=== PATIENT | female | born 1935 | race Caucasian/White ===

== ENCOUNTER → 2018-03-17 | Outpatient (REF) | payer OTHER ==
[2018-03-17 22:02] LABS: APPEARANCE, URINE TURBID (CLEAR); BACTERIA, URINE AUTO 1+ (NEGATIVE); BILIRUBIN, URINE AUTO NEGATIVE (NEGATIVE); BLOOD, URINE BLOOD 3+ (NEGATIVE); COLOR, URINE AMBER (YELLOW); GLUCOSE, URINE (UA) AUTO NEGATIVE (NEGATIVE); KETONE, URINE AUTO NEGATIVE (NEGATIVE); LEUKOCYTE ESTERASE, URINE AUTO 2+ (NEGATIVE); MUCUS, URINE LARGE (NEGATIVE); NITRITE, URINE AUTO POSITIVE (NEGATIVE); PROTEIN, URINE AUTO 2+ mg/dL (NEGATIVE); RBC, URINE AUTO TNTC /HPF (0-3); SPECIFIC GRAVITY URINE AUTO 1.023 (1.002-1.035); SQUAMOUS EPITHELIAL CELL UR AU 0 /HPF (0-6); UROBILINOGEN, URINE AUTO 0.2 mg/dL (0.0-2.0); WBC, URINE AUTO TNTC /HPF (0-3)
== END ==
LOC: M LAB REF 10:15
DX: N39.0 Urinary tract infection, site not specified (principal)
CPT/HCPCS: 81001

== ENCOUNTER 2018-12-20 10:24 | Day surgery (SDC) | payer MEDICARE ==
[~2018-12-20] VITALS: Ht 161.9 cm; Wt 58.4 kg
[~2018-12-20 10:24] MED LIST: /ALEN7SOL OR; ACET-897 PO; ACET65TA OR; ASPI325T OR; BALANCED SALT IRRIGATION SOLUTION 500ML BAG (FOR OR EYE MACHINE) As Ordered ONE; CALC-204 PO; CALC500T21 PO; CALC600T7 PO; CALCCAP4 PO; CALCTAB22 OR; CEFUROXIME 1MG/0.1ML INTRACAMERAL INJ As Ordered ONE; DUOVISC (0.50ML VISCOAT/0.55ML PROVISC) OPHTH KIT As Ordered ONE; FISH300C2 OR; FOSA70TA PO; LIDOCAINE 0.75%/EPINEPHRINE 0.025% IN BSS 1ML SYR INTRACAMERAL (OR ONLY) As Ordered ONE; LOPR50TA OR; MAPA500T17 PO; METO1TAB87 PO; MIDAZOLAM INJ 2 MG/2 ML VIAL (J2250) As Ordered ONE; MULTIVIT PO; OFLOXACIN 0.3 % (OCUFLOX) OPTH SOL 5ML OS ONE; PHENYLEPHRINE 2.5% OPHTH SOL 2ML OS ONE; POVIDONE-IODINE 5% OPHTH PREP SOL 30ML As Ordered ONE; PROPARACAINE 0.5% OPHTH SOL 15ML OS ONE; SENO8.6T9 PO; TROPICAMIDE 1% OPHTH SOLN 2ML OS ONE; ULTR50TA PO; VITAMIN D50000 UNT OR; XARE20TA PO; XARELTO PO; cholecalciferol PO; fentaNYL 100 MCG/2 ML INJECTION (J3010) As Ordered ONE
[2018-12-20 12:33] VITALS: BP 139/69
--- NOTE | 2018-12-21 07:56 | RO ---
DATE OF PROCEDURE: 12/20/2018 PREOPERATIVE DIAGNOSIS: 1. Visually significant nuclear sclerotic cataract left eye. POSTOPERATIVE DIAGNOSIS: 1. Visually significant nuclear sclerotic cataract left eye. PROCEDURE: 1. Cataract extraction with use of phacoemulsification and placement of intraocular lens, AU00T0 21.0 D, left eye. SURGEON: Dez Mendez DO SOFTWARE PROJECT MANAGER: None. ANESTHESIA: Local with monitored anesthesia care (MAC). COMPLICATIONS: None. POSTOPERATIVE CONDITION: Stable. INDICATIONS FOR SURGERY: 1. Blurred vision affecting patients activities of daily living. DESCRIPTION OF PROCEDURE: The patient was seen in the preoperative area and properly identified. The correct operative eye was identified and marked. The patient received topical anesthetic, antibiotics, and topical dilating drops. The patient was then transferred to the operating room. The correct side was re-identified, and a time-out was performed. The eye was prepped and draped in a sterile fashion. The eyelids were isolated with Tegaderm tape, and the lids were held open with an adjustable speculum. A 1.0 mm paracentesis incision was made. Intraocular preservative-free Shugarcaine was then injected into the anterior chamber. Viscoelastic was then injected into the anterior chamber through the paracentesis. Using a 2.4 mm sharp-tipped keratome, the anterior chamber was entered via a temporal clear cornea incision. A continuous curvilinear capsulorrhexis was created with Utrata forceps. Hydrodissection was performed with balanced salt solution (BSS) on a blunt cannula until the nucleus was able to rotate freely. The crystalline lens was phacoemulsified and aspirated. Irrigation/aspiration was used to remove the cortical material. Cohesive viscoelastic was placed into the capsular bag to deepen it. The implant was placed into the capsular bag and allowed to unfold. Placement was confirmed by visualizing the anterior capsulorrhexis. Irrigation/aspiration was used to remove the viscoelastic. The clear corneal incision was hydrated with BSS on a blunt cannula. The lens was well positioned. The incisions were then tested for leaks and found to be negative. The eye was then palpated for appropriate pressure and adjusted accordingly with BSS. The eyelid speculum was then carefully removed. A shield was placed over the eye. The patient tolerated the procedure well and was discharged to the recovery unit in a stable condition.
== END 2018-12-20 12:39 | disposition home or self-care (01) ==
LOC: M SDC 10:24
PROVIDERS: ATTEND Ophthalmology
DX: H25.12 Age-related nuclear cataract, left eye (principal); I10 Essential (primary) hypertension; Z87.891 Personal history of nicotine dependence; Z79.899 Other long term (current) drug therapy
CPT/HCPCS: 66984; J2250; J3010; V2632

== ENCOUNTER 2019-01-03 10:56 | Day surgery (SDC) | payer MEDICARE ==
[~2019-01-03] VITALS: Ht 160 cm; Wt 59.0 kg
[~2019-01-03 10:56] MED LIST changes: -MIDAZOLAM INJ 2 MG/2 ML VIAL (J2250) As Ordered ONE; +OFLOXACIN 0.3 % (OCUFLOX) OPTH SOL 5ML OD ONE; -OFLOXACIN 0.3 % (OCUFLOX) OPTH SOL 5ML OS ONE; +PHENYLEPHRINE 2.5% OPHTH SOL 2ML OD ONE; -PHENYLEPHRINE 2.5% OPHTH SOL 2ML OS ONE; +PROPARACAINE 0.5% OPHTH SOL 15ML OD ONE; -PROPARACAINE 0.5% OPHTH SOL 15ML OS ONE; +TROPICAMIDE 1% OPHTH SOLN 2ML OD ONE; -TROPICAMIDE 1% OPHTH SOLN 2ML OS ONE; -fentaNYL 100 MCG/2 ML INJECTION (J3010) As Ordered ONE
[2019-01-03] MEDS ORDERED: fentaNYL 100 MCG/2 ML INJECTION (J3010) As Ordered ONE (11:55)
[2019-01-03] MEDS ORDERED: MIDAZOLAM INJ 2 MG/2 ML VIAL (J2250) As Ordered ONE (11:55)
[2019-01-03 13:00] VITALS: BP 119/66
[2019-01-03] MEDS ORDERED: ceFAZolin 1GM INJ (J0690 PER 500MG) As Ordered ONE (13:00)
--- NOTE | 2019-01-04 08:26 | RO ---
DATE OF PROCEDURE: 01/03/2019 PREOPERATIVE DIAGNOSIS: 1. Visually significant nuclear sclerotic cataract right eye. POSTOPERATIVE DIAGNOSIS: 1. Visually significant nuclear sclerotic cataract right eye. PROCEDURE: 1. Cataract extraction with use of phacoemulsification and placement of intraocular lens, AU00T0, 21.5 D, right eye. SURGEON: Dez Mendez DO SPECIAL EFFECTS SPECIALIST: None. ANESTHESIA: Local with monitored anesthesia care (MAC). COMPLICATIONS: None. POSTOPERATIVE CONDITION: Stable. INDICATIONS FOR SURGERY: 1. Blurred vision affecting patients activities of daily living. DESCRIPTION OF PROCEDURE: The patient was seen in the preoperative area and properly identified. The correct operative eye was identified and marked. The patient received topical anesthetic, antibiotics, and topical dilating drops. The patient was then transferred to the operating room. The correct side was re-identified, and a time-out was performed. The eye was prepped and draped in a sterile fashion. The eyelids were isolated with Tegaderm tape, and the lids were held open with an adjustable speculum. A 1.0 mm paracentesis incision was made. Intraocular preservative-free Shugarcaine was then injected into the anterior chamber. Viscoelastic was then injected into the anterior chamber through the paracentesis. Using a 2.4 mm sharp-tipped keratome, the anterior chamber was entered via a temporal clear cornea incision. A continuous curvilinear capsulorrhexis was created with Utrata forceps. Hydrodissection was performed with balanced salt solution (BSS) on a blunt cannula until the nucleus was able to rotate freely. The crystalline lens was phacoemulsified and aspirated. Irrigation/aspiration was used to remove the cortical material. Cohesive viscoelastic was placed into the capsular bag to deepen it. The implant was placed into the capsular bag and allowed to unfold. Placement was confirmed by visualizing the anterior capsulorrhexis. Irrigation/aspiration was used to remove the viscoelastic. The clear corneal incision was hydrated with BSS on a blunt cannula. The lens was well positioned. The incisions were then tested for leaks and found to be negative. The eye was then palpated for appropriate pressure and adjusted accordingly with BSS. The eyelid speculum was then carefully removed. A shield was placed over the eye. The patient tolerated the procedure well and was discharged to the recovery unit in a stable condition.
== END 2019-01-03 13:10 | disposition home or self-care (01) ==
LOC: M SDC 10:56
PROVIDERS: ATTEND Ophthalmology
DX: H25.11 Age-related nuclear cataract, right eye (principal); I10 Essential (primary) hypertension; I48.91 Unspecified atrial fibrillation; Z79.01 Long term (current) use of anticoagulants; Z79.899 Other long term (current) drug therapy; Z87.891 Personal history of nicotine dependence
CPT/HCPCS: 66984; J2250; J3010; V2632

== ENCOUNTER 2021-06-23 13:17 | Inpatient (IN) | payer MEDICARE ==
[~2021-06-23] VITALS: Ht 160 cm; Wt 56.6 kg
[~2021-06-23 13:17] MED LIST changes: -BALANCED SALT IRRIGATION SOLUTION 500ML BAG (FOR OR EYE MACHINE) As Ordered ONE; -CEFUROXIME 1MG/0.1ML INTRACAMERAL INJ As Ordered ONE; -DUOVISC (0.50ML VISCOAT/0.55ML PROVISC) OPHTH KIT As Ordered ONE; -LIDOCAINE 0.75%/EPINEPHRINE 0.025% IN BSS 1ML SYR INTRACAMERAL (OR ONLY) As Ordered ONE; -OFLOXACIN 0.3 % (OCUFLOX) OPTH SOL 5ML OD ONE; -PHENYLEPHRINE 2.5% OPHTH SOL 2ML OD ONE; -POVIDONE-IODINE 5% OPHTH PREP SOL 30ML As Ordered ONE; -PROPARACAINE 0.5% OPHTH SOL 15ML OD ONE; -TROPICAMIDE 1% OPHTH SOLN 2ML OD ONE
[2021-06-23] MEDS ORDERED: MORPHINE 2 MG/ML 1ML VIAL (J2270) IV ONE (13:50)
[2021-06-23] MEDS ORDERED: ONDANSETRON 4MG/2ML VIAL IV ONE (13:50)
[2021-06-23 14:26] LABS: BASO # 0.1 10^3/uL (0.0-0.2); BASO % 0.4 % (0.0-1.0); EOS # 0.1 10^3/uL (0.0-0.5); EOS % 0.6 % (0.0-3.0); HEMATOCRIT 44.4 % (36.0-47.0); HEMOGLOBIN 14.5 g/dl (12.0-15.5); LYMPH % 8.5 % (24.0-44.0); MEAN CORPUSCULAR HEMOGLOBIN 31.3 pg (27.0-33.0); MEAN CORPUSCULAR HGB CONC 32.7 g/dl (32.0-36.5); MEAN CORPUSCULAR VOLUME 95.9 fl (80.0-96.0); MONO # 0.5 10^3/uL (0.0-0.8); MONO % 4.1 % (2.0-8.0); NEUTROPHILS % 84.7 % (36.0-66.0); PLATELET COUNT, AUTOMATED 203 10^3/uL (150-450); RED BLOOD COUNT 4.63 10^6/uL (4.00-5.40); WHITE BLOOD COUNT 11.8 10^3/uL (4.0-10.0)
--- NOTE | 2021-06-23 14:45 | REP ---
INDICATION: right hip/pelvic pain s/p fall. COMPARISON: 08/07/2013 the latest prior TECHNIQUE: AP pelvis two views right hip FINDINGS: The right hip prosthesis is unchanged in alignment and position. No abnormal para prosthetic lucencies are identified. There is evidence of a cortical overlap involving the acetabulum of the right hip and increased bony density involving the right inferior pubic ramus. This represents a change compared to the prior exam. This also represents a change compared to the contralateral side.. IMPRESSION: Findings, as described above, suspicious for a right james pelvic fracture. CT recommended for further evaluation. <Electronically signed by Brad Machuca > 06/23/21 [id number]
[2021-06-23 14:46] LABS: CALCIUM LEVEL 9.2 MG/DL (8.8-10.2); CREATININE FOR GFR 1.1 MG/DL (0.55-1.30); GLOMERULAR FILTRATION RATE 50.3 (>32); POTASSIUM SERUM 4.3 MEQ/L (3.5-5.1)
--- NOTE | 2021-06-23 15:43 | REP ---
INDICATION: further evaluate right pelvic fracture. COMPARISON: None. TECHNIQUE: Axial images through the pelvis and right hip with coronal and sagittal reformations of the pelvis and hip. FINDINGS: Evaluation is limited due to significant metallic streak artifact from right hip replacement. There is evidence for an acute comminuted minimally displaced fracture of the right inferior pubic ramus (series 201; image 77). There appears to be an associated intramuscular hematoma along the superficial aspect of the fracture which is incompletely evaluated due to significant metallic streak artifact. Coronal images of the right hip best demonstrate an associated subtle nondisplaced fracture along the internal cortex of the acetabulum (series 212; image 23). There is a subtle nondisplaced fracture along the anterior margin of the right james sacrum (series 201; images 34-39). IMPRESSION: Multiple fractures as described above. <Electronically signed by Graham Younger > 06/23/21 [id number]
--- NOTE | 2021-06-23 17:37 | CR.PDOC ---
General Date of Consultation: Jun 23, 2021 Consultation REASON FOR CONSULTATION/CHIEF COMPLAINT: Mechanical fall with x-ray and CT imaging demonstrating multiple undisplaced pelvic fractures in the setting of a right total hip arthroplasty. HISTORY OF PRESENT ILLNESS: Patient states that she had been outside today and slipped on some wet blacktop and fell onto her right side. She was unable to weight-bear. She was helped into a chair until the ambulance arrived. The patient reports that she had a history of a right total hip arthroplasty performed by Dr. Angel of [facility] in 2013. She is not had any issues or complaints or concerns associated with this. Currently she states that if she lies still she does not have any significant pain or discomfort. When she tries to move about she starts to get some pelvic pain. ALLERGIES: Please see below. HOME MEDICATIONS: Please see below. 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 REVIEW OF SYSTEMS: Patient denies any other injuries aside from the right hip and pelvic pains that she is experiencing. Denies any tingling numbness or paresthesias to lower extremities. PHYSICAL EXAMINATION: VITAL SIGNS: Please see below. GENERAL APPEARANCE: Patient is alert and oriented and in no acute distress lying in bed. EXTREMITIES: Gentle logroll of the right leg does not demonstrate any significant pain or discomfort. I did not do any significant hip flexion or otherwise manipulation of the right hip joint as result of the patient's injury. Neurologic: 5/5 strength, bilaterally to the tibialis anterior, EHL and gastrocsoleus. Sensation is intact to light touch in the L4-S1 dermatome distribution, bilaterally. Vascular: Palpable posterior tibial pulse bilaterally to lower extremities. LABORATORY DATA: Please see below. Imaging: X-ray imaging was independently reviewed by myself. This demonstrated evidence of an inferior pubic rami fracture and medial acetabular wall minimally to undisplaced fracture. CT scan of Pelvis: Imaging was independently reviewed by myself. The report demonstrated findings consistent with an anterior margin sacral fracture on the right side minimally to undisplaced. Inferior pubic ramus fracture minimally to undisplaced with some comminution and the anterior margin of the acetabulum on the right demonstrated undisplaced fracture. There is no significant evidence of any loosening of the right hip prosthesis ASSESSMENT/PLAN: 1. Imaging was reviewed and discussed with the patient. The patient would like to avoid any surgical intervention if possible. Based on the fact that the prosthesis does not appear to be loose and the fractures are minimally to nondisplaced. I have suggested conservative treatment. If an acetabular reconstruction and revision of the hip replacement was required, this would have to be referred to a tertiary care center due to the level of complexity. She is in understanding of this. We will proceed with conservative treatment. I have recommended touchdown weightbearing for balance only to the right lower extremity to mobilize with a walker. Limit hip flexion to less than 45 degrees with limited range of motion to the hip joint for the 2 to 3-weeks Hold the patient's Eliquis and reevaluate her hemoglobin and hematocrit tomorrow morning. If there is a drop in her hemoglobin there may be consideration for holding the blood thinner for 48 to 72 hours. Any significant drop in the hemoglobin should be evaluated with a CT angio of the pelvis to see if there are any vessels that may need to be embolized. Given the minimally displaced nature of the fracture this is less likely Patient may require rehabilitation depending on her activity level. 2. The patient will follow up in the clinic for reevaluation with repeat x-ray imaging in 6 weeks. I have discussed the conservative treatment plan with the patient and she is in agreement with this option. Vital Signs/I&O Vital Signs Date Time Temp Pulse Resp B/P (MAP) Pulse Ox O2 Delivery O2 Flow Rate FiO2 06/23/21 16:47 74 98 06/23/21 16:45 17 150/84 (106) Room Air 06/23/21 13:34 97.2 Laboratory Data Labs 24H Laboratory Tests 2 06/23/21 14:10: Immature Granulocyte % (Auto) 1.7, Neutrophils (%) (Auto) 84.7H, Lymphocytes (%) (Auto) 8.5L, Monocytes (%) (Auto) 4.1, Eosinophils (%) (Auto) 0.6, Basophils (%) (Auto) 0.4, Neutrophils # (Auto) 10.0H, Lymphocytes # (Auto) 1.0L, Monocytes # (Auto) 0.5, Eosinophils # (Auto) 0.1, Basophils # (Auto) 0.1, Nucleated Red Blood Cells % (auto) 0.0, Anion Gap 6L, Glomerular Filtration Rate 50.3, Calcium Level 9.2 CBC/BMP Laboratory Tests 06/23/21 14:10 Allergies Coded Allergies: No Known Allergies (Unverified , 12/19/18) Home Medications Scheduled Alendronate Sodium (Alendronate Sodium) 70 Mg Tablet, 70 MG PO QWEEK, (Reported) SUNDAYS Calcium Carbonate/Vitamin D3 (Calcium 600 + Vit D 400 Softgl) 1 Each Capsule, 1 CAP PO DAILY, (Reported) Metoprolol Tartrate (Metoprolol Tartrate) 25 Mg Tablet, 25 MG PO BID, (Reported) Rivaroxaban (Xarelto) 20 Mg Tablet, 20 MG PO DAILY, (Reported) Scheduled PRN Acetaminophen (Tylenol Extra Strength) 500 Mg Tablet, 500 MG PO Q6HP PRN for PAIN, (Reported) ANGIE TRACEY MD Jun 23, 2021 17:37
[2021-06-23] MEDS ORDERED: MORPHINE 2 MG/ML 1ML VIAL (J2270) IV PRN (17:50)
[2021-06-23] MEDS ORDERED: ALEN70TA82 PO (18:07)
[2021-06-23] MEDS ORDERED: HOME MED LIST COMPLETE! XX SCH (18:10)
--- NOTE | 2021-06-23 18:19 | HPEPDOC ---
[facility] Medical History & Physical Date of Admission Jun 23, 2021 Date of Service: Jun 23, 2021 History and Physical CHIEF COMPLAINT: slipped on icy blacktop, landing on my right hip HISTORY OF PRESENT ILLNESS: 86 y/o Full code F w h/o right hip replacement 2013, chronic Afib on Xarelto was in her usual state of health until 1245pm when she slipped on the icy blacktop and landed on her right hip unable to get up and ambulate w 10/10 pain. She denied any sob, cp, pressure tightness, dizziness, lightheadedness, near syncope, diaphoresis, n/v/, palpitations prior to the fall. She denies any head trauma or loss of consciousness. She denies any recent fevers, chills,changes in appetite, n/v/abd pain, diarrhea, brbpr, hematemesis, coffee ground emesis, hypoglycemia, dysuria, urgency, frequency, banuelos, changes in vision, sore throat, ue and le paresthesias or weakness b/l prior to the fall. In the ER,ct pelvis: "There is evidence for an acute comminuted minimally displaced fracture of the right inferior pubic ramus . There appears to be an associated intramuscular hematoma along the superficial aspect of the fracture which is incompletely evaluated due to significant metallic streak artifact. Coronal images of the right hip best demonstrate an associated subtle nondisplaced fracture along the internal cortex of the acetabulum . There is a subtle nondisplaced fracture along the anterior margin of the right james sacrum." orthopedic surgery recommended hospitalist admission with supportive care. Xarelto held due to hematoma. 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 ALLERGIES: Please see below. REVIEW OF SYSTEMS:10 pt ros neg aside from (+) findings on HPI HOME MEDICATIONS: Please see below. PHYSICAL EXAMINATION: VITAL SIGNS:see below GEN: no distress cyanosis pallor HEENT: face is symmetric tongue midline no jvd or thyromegaly CARDIOVASCULAR: S1S2 irregularly irregular no s3 nondisplaced pmi no m/r/g LUNGS: CTAB AEBE no w/r/r ABDOMEN:+bs soft nt nd EXTREMITIES:no pitting edema right leg limited rom w flexion extension at hip due to pain dp pt pulses 2+ bl le. no cyanosis. SKIN: warm dry pink in color LABORATORY DATA: See below. IMAGING: see below MICROBIOLOGY: Please see below. ASSESSMENT: .86 y/o Full code F w h/o right hip replacement 2013, chronic Afib on Xarelto was in her usual state of health until 1245pm when she slipped on the [place] blacktop and landed on her right hip unable to get up and ambulate w 10/10 pain. She denied any sob, cp, pressure tightness, dizziness, lightheadedness, near syncope, diaphoresis, n/v/, palpitations prior to the fall. She denies any head trauma or loss of consciousness. She denies any recent fevers, chills,changes in appetite, n/v/abd pain, diarrhea, brbpr, hematemesis, coffee ground emesis, hypoglycemia, dysuria, urgency, frequency, banuelos, changes in vision, sore throat, ue and le paresthesias or weakness b/l prior to the fall. In the ER,ct pelvis: "There is evidence for an acute comminuted minimally displaced fracture of the right inferior pubic ramus . There appears to be an associated intramuscular hematoma along the superficial aspect of the fracture which is incompletely evaluated due to significant metallic streak artifact. Coronal images of the right hip best demonstrate an associated subtle nondisplaced fracture along the internal cortex of the acetabulum . There is a subtle nondisplaced fracture along the anterior margin of the right james sacrum." orthopedic surgery recommended hospitalist admission with supportive care. Xarelto held due to hematoma. mechanical fall in the setting of chronic xarelto for Afib multiple pelvic fracture/acetabular fx chronic afib htn osteoporosis vitamin D deficiency h/o uti PLAN: per ortho, conservative mgt w pain control and rehab, bowel regimen. held xarelto today due to hematoma. fall precautions, assisted ambulation only. activity per ortho. ARU consulted resumed metoprolol for hr control and bp. 2 gram sodium diet start on heparin sq in am for dvt prophylaxis once hematoma stabilizes. compression stockings for now. pt refused ct head and ct cervical spine. Vital Signs Vital Signs Date Time Temp Pulse Resp B/P (MAP) Pulse Ox O2 Delivery O2 Flow Rate FiO2 06/23/21 16:47 74 98 06/23/21 16:45 17 150/84 (106) Room Air 06/23/21 13:34 97.2 Laboratory Data Labs 24H Laboratory Tests 2 06/23/21 14:10: Immature Granulocyte % (Auto) 1.7, Neutrophils (%) (Auto) 84.7H, Lymphocytes (%) (Auto) 8.5L, Monocytes (%) (Auto) 4.1, Eosinophils (%) (Auto) 0.6, Basophils (%) (Auto) 0.4, Neutrophils # (Auto) 10.0H, Lymphocytes # (Auto) 1.0L, Monocytes # (Auto) 0.5, Eosinophils # (Auto) 0.1, Basophils # (Auto) 0.1, Nucleated Red Blood Cells % (auto) 0.0, Anion Gap 6L, Glomerular Filtration Rate 50.3, Calcium Level 9.2 CBC/BMP Laboratory Tests 06/23/21 14:10 Home Medications Scheduled Alendronate Sodium (Alendronate Sodium) 70 Mg Tablet, 70 MG PO QWEEK SUNDAYS Calcium Carbonate/Vitamin D3 (Calcium 600 + Vit D 400 Softgl) 1 Each Capsule, 1 CAP PO DAILY Metoprolol Tartrate (Metoprolol Tartrate) 25 Mg Tablet, 25 MG PO BID Rivaroxaban (Xarelto) 20 Mg Tablet, 20 MG PO DAILY Scheduled PRN Acetaminophen (Tylenol Extra Strength) 500 Mg Tablet, 500 MG PO Q6HP PRN for PAIN Allergies Coded Allergies: No Known Allergies (Unverified , 12/19/18) A-FIB/CHADSVASC A-FIB History Current/History of A-Fib/PAF?: Yes Current PO Anticoag Therapy: Yes Age/Risk Factor Scoring CHADSVASC: CHADSVASC Response (Comments) Value Age Risk Factor Age >/= 75 years old 2 Gender Risk Factor Female 1 Hx of CHF No 0 Hx of HTN Yes 1 Hx of Stroke/TIA/or VTE No 0 Hx of Diabetes No 0 Hx of Vascular Disease No 0 Total 4 Treatment Treatment ordered: NONE Reason Anticoagulant not given: Current bleeding MILENA GOMEZ MD Jun 23, 2021 18:18
[2021-06-23 19:04] LABS: RSV AMPLIFICATION NEGATIVE (NEGATIVE)
[2021-06-23 20:00] VITALS: BP 143/82
[2021-06-23] MEDS ORDERED: METOPROLOL TART 25 MG TABLET PO SCH (21:00)
--- NOTE | 2021-06-23 21:39 | ECGEPIP ---
[facility] - ED Test Date: 2021-06-23 Pat Name: SANFORD SERVIN Department: Room: - Gender: Female [employer] Analyst: heather : 1935 Requested By: ANGIE WALLACE Order Number: [id number] Reading MD: Prasanna Henry Measurements Intervals [place] Rate: 75 P: 39 [place]: 170 QRS: -38 QRSD: 78 T: 38 QT: 384 QTc: 428 Interpretive Statements Normal sinus rhythm Left axis deviation POOR R WAVE PROGRESSION INCOMPLETE RIGHT BUNDLE BRANCH BLOCK NO PRIORS FOR COMPARISON Electronically Signed on 06-23-2021 21:38:59 EST by Prasanna Henry
[2021-06-23] MEDS: ACETAMINOPHEN 500 MG TAB PO SCH (21:40)
[2021-06-24] MEDS: traMADol 50 MG TAB PO PRN ×2 (00:45→08:57)
[2021-06-24 05:30] VITALS: BP 116/69
[2021-06-24 06:53] LABS: HEMATOCRIT 36.1 % (36.0-47.0); MEAN CORPUSCULAR HEMOGLOBIN 31.8 pg (27.0-33.0); MEAN CORPUSCULAR HGB CONC 33.8 g/dl (32.0-36.5); PLATELET COUNT, AUTOMATED 177 10^3/uL (150-450); RED BLOOD COUNT 3.84 10^6/uL (4.00-5.40); WHITE BLOOD COUNT 9.3 10^3/uL (4.0-10.0)
[2021-06-24 07:00] LABS: HEMOGLOBIN 12.2 g/dl (12.0-15.5)
[2021-06-24 07:21] LABS: BLOOD UREA NITROGEN 17 MG/DL (7-18); CALCIUM LEVEL 8.8 MG/DL (8.8-10.2); CARBON DIOXIDE LEVEL 29 MEQ/L (21-32); CHLORIDE LEVEL 102 MEQ/L (98-107); CREATININE FOR GFR 0.78 MG/DL (0.55-1.30); GLOMERULAR FILTRATION RATE > 60.0 (>32); GLUCOSE, FASTING 112 MG/DL (70-100); POTASSIUM SERUM 3.9 MEQ/L (3.5-5.1); SODIUM LEVEL 136 MEQ/L (136-145)
[2021-06-24] MEDS: ACETAMINOPHEN 500 MG TAB PO SCH ×3 (08:53→20:07)
[2021-06-24] MEDS: METOPROLOL SUCC *XL* 25MG TAB (TopROL *XL*) PO SCH (08:55)
[2021-06-24] MEDS: LIDOCAINE 5% (LIDODERM) PATCH TD SCH (08:56)
[2021-06-24] MEDS ORDERED: MIRALAX *UNIT DOSE* 17GM PACKET PO PRN (10:05)
[2021-06-24] MEDS ORDERED: MORPHINE 30 MG TAB **MSIR PO PRN (10:05)
[2021-06-24] MEDS ORDERED: NALOXONE INJ 0.4MG/1ML VIAL (J2310 PER 1MG) IV PRN (10:05)
--- NOTE | 2021-06-24 12:15 | IPNPDOC ---
Date Seen The patient was seen on 06/24/21. Progress Note Subjective: Patient has no pain when she is laying still on her back says the pain goes to 8 out of 10 when she tries to move around in bed she has not been out of bed or tried to get up this morning No other complaints overnight no other issues per nursing Objective: PHYSICAL EXAMINATION: VITAL SIGNS:see below GEN: Pleasant cooperative speaks in full sentences without cyanosis pallor flat on the bed in no distress HEENT: face is symmetric tongue midline no jvd or thyromegaly no cervical lymphadenopathy CARDIOVASCULAR: S1S2 irregularly irregular no s3 nondisplaced pmi no m/r/g LUNGS: CTAB AEBE no w/r/r no adventitious breath sounds ABDOMEN:+bs soft nt nd no rebound or guarding no hepatosplenomegaly EXTREMITIES:no pitting edema right leg limited rom w flexion extension at hip du e to pain dp pt pulses 2+ bl le. no cyanosis. SKIN: warm dry pink in color LABORATORY DATA: See below. IMAGING: see below MICROBIOLOGY: Please see below. HOSPITAL MEDICATIONS: METOPROLOL SENOKOT MIRALAX NARCAN MSIR TOPROL LIDODERM PATCH TYLENOL IV MORPHINE NEEDED ASSESSMENT: .86 y/o Full code F w h/o right hip replacement 2013, chronic Afib on Xarelto was in her usual state of health until 1245pm when she slipped on the icy blacktop and landed on her right hip unable to get up and ambulate w 10/10 pain. She denied any sob, cp, pressure tightness, dizziness, lightheadedness, near syncope, diaphoresis, n/v/, palpitations prior to the fall. She denies any head trauma or loss of consciousness. She denies any recent fevers, chills,changes in appetite, n/v/abd pain, diarrhea, brbpr, hematemesis, coffee ground emesis, hypoglycemia, dysuria, urgency, frequency, banuelos, changes in vision, sore throat, ue and le paresthesias or weakness b/l prior to the fall. In the ER,ct pelvis: "There is evidence for an acute comminuted minimally displaced fracture of the right inferior pubic ramus . There appears to be an associated intramuscular hematoma along the superficial aspect of the fracture which is incompletely evaluated due to significant metallic streak artifact. Coronal images of the right hip best demonstrate an associated subtle nondisplaced fracture along the internal cortex of the acetabulum . There is a subtle nondisplaced fracture along the anterior margin of the right james sacrum." orthopedic surgery recommended hospitalist admission with supportive care. Xarelto held due to hematoma. mechanical fall in the setting of chronic xarelto for Afib Conservative management per-per orthopedic surgeon Dr. Sawyer Fall precautions assisted ambulation only ARU consulted Xarelto held due to hematoma found on CT May resume in the morning if stable MSIR as needed for pain IV morphine for breakthrough. Tylenol 3 times daily multiple pelvic fracture/acetabular fx Conservative management with pain control physical therapy occupational therapy bowel regimen chronic afib May resume Xarelto in the morning. Held due to recent hematoma. Rate controlled on metoprolol htn Controlled on metoprolol osteoporosis/vitamin D deficiency/history of fall in the past May resume supplements in the morning h/o uti Check UA urine C&S Disposition: 2 to 3 days pending clinical improvement. Possible ARU versus home with services VS, I&O, 24H[facility] Vital Signs/I&O Vital Signs Date Time Temp Pulse Resp B/P (MAP) Pulse Ox O2 Delivery O2 Flow Rate FiO2 06/24/21 09:57 16 Room Air 06/24/21 08:55 79 134/83 06/24/21 05:30 98.0 98 Laboratory Data 24H LABS Laboratory Tests 2 06/23/21 14:10: Immature Granulocyte % (Auto) 1.7, Neutrophils (%) (Auto) 84.7H, Lymphocytes (%) (Auto) 8.5L, Monocytes (%) (Auto) 4.1, Eosinophils (%) (Auto) 0.6, Basophils (%) (Auto) 0.4, Neutrophils # (Auto) 10.0H, Lymphocytes # (Auto) 1.0L, Monocytes # (Auto) 0.5, Eosinophils # (Auto) 0.1, Basophils # (Auto) 0.1, Nucleated Red Blood Cells % (auto) 0.0, Anion Gap 6L, Glomerular Filtration Rate 50.3, Calcium Level 9.2 06/23/21 17:24: Coronavirus (COVID-19)(PCR) NEGATIVE, Influenza Type A (RT-PCR) NEGATIVE, Influenza Type B (RT-PCR) NEGATIVE, Respiratory Syncytial Virus (PCR) NEGATIVE 06/24/21 06:43: Anion Gap 5L, Glomerular Filtration Rate > 60.0, Calcium Level 8.8 06/24/21 06:44: Nucleated Red Blood Cells % (auto) 0.0 CBC/BMP Laboratory Tests 06/23/21 14:10 06/24/21 06:43 06/24/21 06:44 MILENA GOMEZ MD Jun 24, 2021 12:14
[2021-06-24 14:00] VITALS: BP 119/67
[2021-06-24] MEDS: **NOTE PATIENT COMMENT** MISC XX SCH (20:55)
[2021-06-25 06:27] LABS: HEMATOCRIT 35.7 % (36.0-47.0); MEAN CORPUSCULAR HEMOGLOBIN 31.7 pg (27.0-33.0); MEAN CORPUSCULAR HGB CONC 33.6 g/dl (32.0-36.5); MEAN CORPUSCULAR VOLUME 94.2 fl (80.0-96.0); PLATELET COUNT, AUTOMATED 166 10^3/uL (150-450); RED BLOOD COUNT 3.79 10^6/uL (4.00-5.40)
[2021-06-25 06:30] VITALS: BP 120/70
[2021-06-25 06:43] LABS: BLOOD UREA NITROGEN 18 MG/DL (7-18); CALCIUM LEVEL 8.3 MG/DL (8.8-10.2); CARBON DIOXIDE LEVEL 28 MEQ/L (21-32); CHLORIDE LEVEL 106 MEQ/L (98-107); CREATININE FOR GFR 0.87 MG/DL (0.55-1.30); GLOMERULAR FILTRATION RATE > 60.0 (>32); GLUCOSE, FASTING 96 MG/DL (70-100); SODIUM LEVEL 139 MEQ/L (136-145)
[2021-06-25] MEDS: LIDOCAINE 5% (LIDODERM) PATCH TD SCH (08:35)
[2021-06-25] MEDS: ACETAMINOPHEN 500 MG TAB PO SCH ×3 (08:36→21:22)
[2021-06-25] MEDS: METOPROLOL SUCC *XL* 25MG TAB (TopROL *XL*) PO SCH (08:36)
[2021-06-25 14:29] VITALS: BP 113/66
[2021-06-25] MEDS ORDERED: CALCIUM CARBONATE 500 MG CHEW U/D PO PRN (16:55)
--- NOTE | 2021-06-25 16:56 | IPNPDOC ---
Text Note Date of Service The patient was seen on 06/25/21. NOTE Subjective: 86-year-old female presented emergency room department after a fall. CT scan of the pelvis noted acute minimally displaced fracture of the right inferior pubic ramus; nondisplaced fracture along the internal cortex of the acetabulum; and a nondisplaced fracture along the anterior margin of the right hemisacrum. She was seen and examined this morning. Reports having sacral pain. She denied tingling and numbness of the lower extremities. She denied headaches, chest pain, abdominal pain, nausea, vomiting, problem with urination or bowel movements. She was explained the plan for possible rehab placement, which she was in agreement with. Review of systems: 10 point review of system was negative except for what is noted in the HPI Physical exam: General: Lying in bed, no acute distress Head/Neck/Throat: Trachea midline, mucous membranes moist Eyes: Sclera anicteric, erythema or discharge appreciated bilaterally Thorax: Normal respiratory effort on room air, lungs clear to auscultation bilaterally, no wheezes/rales/rhonchi Cardiovascular: Normal rate, regular rhythm, normal S1, S2; palpable dorsalis pedis bilaterally Abdomen: Bowel sounds present, soft/nontender/nondistended Genitourinary: No CVA tenderness, no Cooper in place Skin: Warm, dry Neurologic: AAOx3. 5/5 strength in the upper and lower extremities. Sensation to gross touch intact. Limited range of motion in the right lower extremity due to reported pain over the sacrum region. Labs: See below Imaging: Please see imaging section Assessment/plan: #Mechanical fall - CT scan of the pelvis noted acute minimally displaced fracture of the right inferior pubic ramus; nondisplaced fracture along the internal cortex of the acetabulum; and a nondisplaced fracture along the anterior margin of the right hemisacrum. She does not want any surgical interventions at this time. Appreciate orthopedic recommendations in regards to weightbearing status. -Continue with PT/OT. Fall precautions. #Multiple pelvic fractures -Plan above. #Osteoporosis/vitamin D deficiency -Continue with ambulatory supplementation #Hematoma -This was patient on CT scan. Hemoglobin remained stable. Her Xarelto can be resumed. #Chronic atrial fibrillation -Rate is controlled with metoprolol. Continue with Xarelto, dose has been adjusted based on renal function. #Hypertension -Controlled with metoprolol #DVT prophylaxis -offered w/ rivaroxaban Disposition: Pt medically stable to be placed in rehab. She was not accepted to ARU. Will be made ALC status. VS,Fishbone, I+O VS, Fishbone, I+O Laboratory Tests 06/25/21 05:52 Vital Signs Date Time Temp Pulse Resp B/P (MAP) Pulse Ox O2 Delivery O2 Flow Rate FiO2 06/25/21 09:06 16 06/25/21 08:36 111 120/70 06/25/21 06:30 97.7 96 06/24/21 09:57 Room Air I&O- Last 24 Hours up to 6 AM 06/25/21 06:00 Intake Total 1540 ml Balance 1540 ml KIANA MAHAN M.D. Jun 25, 2021 16:56
[2021-06-25] MEDS ORDERED: RIVAROXABAN 15 MG TAB (XARELTO) PO SCH (18:00)
[2021-06-25] MEDS: **NOTE PATIENT COMMENT** MISC XX SCH (21:22)
[2021-06-26 06:00] VITALS: BP 145/86
[2021-06-26 07:25] LABS: HEMATOCRIT 35.4 % (36.0-47.0); HEMOGLOBIN 11.7 g/dl (12.0-15.5); MEAN CORPUSCULAR HEMOGLOBIN 31.5 pg (27.0-33.0); MEAN CORPUSCULAR HGB CONC 33.1 g/dl (32.0-36.5); MEAN CORPUSCULAR VOLUME 95.2 fl (80.0-96.0); PLATELET COUNT, AUTOMATED 154 10^3/uL (150-450); RED BLOOD COUNT 3.72 10^6/uL (4.00-5.40); WHITE BLOOD COUNT 6.5 10^3/uL (4.0-10.0)
[2021-06-26 07:53] LABS: BLOOD UREA NITROGEN 21 MG/DL (7-18); CALCIUM LEVEL 8.1 MG/DL (8.8-10.2); CARBON DIOXIDE LEVEL 29 MEQ/L (21-32); CHLORIDE LEVEL 106 MEQ/L (98-107); CREATININE FOR GFR 0.81 MG/DL (0.55-1.30); GLOMERULAR FILTRATION RATE > 60.0 (>32); GLUCOSE, FASTING 95 MG/DL (70-100); POTASSIUM SERUM 4.3 MEQ/L (3.5-5.1); SODIUM LEVEL 140 MEQ/L (136-145)
[2021-06-26] MEDS: VITAMIN D (CHOLECALCIFEROL) 400 INTERNATIONAL UNITS TAB PO SCH (08:23)
[2021-06-26] MEDS: ACETAMINOPHEN 500 MG TAB PO SCH ×3 (08:24→20:28)
[2021-06-26] MEDS: METOPROLOL SUCC *XL* 25MG TAB (TopROL *XL*) PO SCH (08:25)
[2021-06-26] MEDS: LIDOCAINE 5% (LIDODERM) PATCH TD SCH (08:25)
[2021-06-26] MEDS: SENOKOT S TAB PO PRN (10:10)
[2021-06-26] MEDS: RIVAROXABAN 15 MG TAB (XARELTO) PO SCH (17:06)
[2021-06-26] MEDS: **NOTE PATIENT COMMENT** MISC XX SCH (20:29)
[2021-06-27] MEDS: traMADol 50 MG TAB PO PRN (02:41)
[2021-06-27 06:00] VITALS: BP 132/62
[2021-06-27] MEDS ORDERED: ALENDRONATE 35MG TABLET PO SCH (07:00)
[2021-06-27 08:14] LABS: HEMATOCRIT 33.4 % (36.0-47.0); HEMOGLOBIN 11.2 g/dl (12.0-15.5); MEAN CORPUSCULAR HEMOGLOBIN 31.7 pg (27.0-33.0); MEAN CORPUSCULAR HGB CONC 33.5 g/dl (32.0-36.5); MEAN CORPUSCULAR VOLUME 94.6 fl (80.0-96.0); PLATELET COUNT, AUTOMATED 180 10^3/uL (150-450); RED BLOOD COUNT 3.53 10^6/uL (4.00-5.40); WHITE BLOOD COUNT 6.2 10^3/uL (4.0-10.0)
[2021-06-27] MEDS: VITAMIN D (CHOLECALCIFEROL) 400 INTERNATIONAL UNITS TAB PO SCH (08:29)
[2021-06-27] MEDS: LIDOCAINE 5% (LIDODERM) PATCH TD SCH (08:29)
[2021-06-27] MEDS: ACETAMINOPHEN 500 MG TAB PO SCH ×3 (08:31→20:46)
[2021-06-27] MEDS: METOPROLOL SUCC *XL* 25MG TAB (TopROL *XL*) PO SCH (08:32)
[2021-06-27 08:37] LABS: BLOOD UREA NITROGEN 17 MG/DL (7-18); CALCIUM LEVEL 8.3 MG/DL (8.8-10.2); CARBON DIOXIDE LEVEL 29 MEQ/L (21-32); CHLORIDE LEVEL 105 MEQ/L (98-107); CREATININE FOR GFR 0.77 MG/DL (0.55-1.30); GLOMERULAR FILTRATION RATE > 60.0 (>32); GLUCOSE, FASTING 92 MG/DL (70-100); POTASSIUM SERUM 3.9 MEQ/L (3.5-5.1); SODIUM LEVEL 139 MEQ/L (136-145)
[2021-06-27] MEDS: RIVAROXABAN 15 MG TAB (XARELTO) PO SCH (17:58)
[2021-06-27] MEDS: **NOTE PATIENT COMMENT** MISC XX SCH (20:46)
[2021-06-28] MEDS: SENOKOT S TAB PO PRN (03:48)
[2021-06-28 06:00] VITALS: BP 137/83
[2021-06-28 06:56] LABS: HEMATOCRIT 33.6 % (36.0-47.0); HEMOGLOBIN 11.3 g/dl (12.0-15.5); MEAN CORPUSCULAR HGB CONC 33.6 g/dl (32.0-36.5); MEAN CORPUSCULAR VOLUME 95.2 fl (80.0-96.0); PLATELET COUNT, AUTOMATED 189 10^3/uL (150-450); RED BLOOD COUNT 3.53 10^6/uL (4.00-5.40); WHITE BLOOD COUNT 5.6 10^3/uL (4.0-10.0)
[2021-06-28 07:19] LABS: BLOOD UREA NITROGEN 19 MG/DL (7-18); CALCIUM LEVEL 8.1 MG/DL (8.8-10.2); CARBON DIOXIDE LEVEL 27 MEQ/L (21-32); CHLORIDE LEVEL 106 MEQ/L (98-107); CREATININE FOR GFR 0.77 MG/DL (0.55-1.30); GLOMERULAR FILTRATION RATE > 60.0 (>32); GLUCOSE, FASTING 93 MG/DL (70-100); POTASSIUM SERUM 3.9 MEQ/L (3.5-5.1); SODIUM LEVEL 139 MEQ/L (136-145)
[2021-06-28] MEDS: VITAMIN D (CHOLECALCIFEROL) 400 INTERNATIONAL UNITS TAB PO SCH (08:32)
[2021-06-28] MEDS: LIDOCAINE 5% (LIDODERM) PATCH TD SCH (08:32)
[2021-06-28] MEDS: ACETAMINOPHEN 500 MG TAB PO SCH ×3 (08:33→21:15)
[2021-06-28] MEDS: METOPROLOL SUCC *XL* 25MG TAB (TopROL *XL*) PO SCH (08:34)
[2021-06-28] MEDS: RIVAROXABAN 15 MG TAB (XARELTO) PO SCH (17:55)
[2021-06-28] MEDS: **NOTE PATIENT COMMENT** MISC XX SCH (20:04)
[2021-06-28] MEDS: diphenhydrAMINE 25MG CAP PO PRN (21:55)
[2021-06-29 05:20] VITALS: BP 143/83
[2021-06-29 06:11] LABS: HEMATOCRIT 33.3 % (36.0-47.0); HEMOGLOBIN 10.9 g/dl (12.0-15.5); MEAN CORPUSCULAR HEMOGLOBIN 31.1 pg (27.0-33.0); MEAN CORPUSCULAR HGB CONC 32.7 g/dl (32.0-36.5); MEAN CORPUSCULAR VOLUME 95.1 fl (80.0-96.0); PLATELET COUNT, AUTOMATED 190 10^3/uL (150-450); WHITE BLOOD COUNT 5.6 10^3/uL (4.0-10.0)
[2021-06-29 06:34] LABS: BLOOD UREA NITROGEN 21 MG/DL (7-18); CALCIUM LEVEL 8.4 MG/DL (8.8-10.2); CARBON DIOXIDE LEVEL 26 MEQ/L (21-32); CHLORIDE LEVEL 106 MEQ/L (98-107); CREATININE FOR GFR 0.75 MG/DL (0.55-1.30); GLOMERULAR FILTRATION RATE > 60.0 (>32); GLUCOSE, FASTING 90 MG/DL (70-100); SODIUM LEVEL 139 MEQ/L (136-145)
[2021-06-29] MEDS: VITAMIN D (CHOLECALCIFEROL) 400 INTERNATIONAL UNITS TAB PO SCH (08:51)
[2021-06-29] MEDS: METOPROLOL SUCC *XL* 25MG TAB (TopROL *XL*) PO SCH (08:51)
[2021-06-29] MEDS: LIDOCAINE 5% (LIDODERM) PATCH TD SCH (08:51)
[2021-06-29] MEDS: ACETAMINOPHEN 500 MG TAB PO SCH ×3 (08:52→21:42)
[2021-06-29] MEDS: RIVAROXABAN 15 MG TAB (XARELTO) PO SCH (17:59)
[2021-06-29] MEDS: **NOTE PATIENT COMMENT** MISC XX SCH (21:42)
[2021-06-29] MEDS: diphenhydrAMINE 25MG CAP PO PRN (21:42)
[2021-06-30 05:40] VITALS: BP 119/72
[2021-06-30 06:09] LABS: HEMATOCRIT 30.8 % (36.0-47.0); HEMOGLOBIN 10.4 g/dl (12.0-15.5); MEAN CORPUSCULAR HGB CONC 33.8 g/dl (32.0-36.5); MEAN CORPUSCULAR VOLUME 94.8 fl (80.0-96.0); PLATELET COUNT, AUTOMATED 203 10^3/uL (150-450); RED BLOOD COUNT 3.25 10^6/uL (4.00-5.40); WHITE BLOOD COUNT 5.3 10^3/uL (4.0-10.0)
[2021-06-30 06:40] LABS: BLOOD UREA NITROGEN 21 MG/DL (7-18); CALCIUM LEVEL 8.3 MG/DL (8.8-10.2); CARBON DIOXIDE LEVEL 28 MEQ/L (21-32); CHLORIDE LEVEL 109 MEQ/L (98-107); CREATININE FOR GFR 0.74 MG/DL (0.55-1.30); GLOMERULAR FILTRATION RATE > 60.0 (>32); GLUCOSE, FASTING 88 MG/DL (70-100); POTASSIUM SERUM 4.3 MEQ/L (3.5-5.1); SODIUM LEVEL 141 MEQ/L (136-145)
[2021-06-30] MEDS: VITAMIN D (CHOLECALCIFEROL) 400 INTERNATIONAL UNITS TAB PO SCH (08:15)
[2021-06-30] MEDS: LIDOCAINE 5% (LIDODERM) PATCH TD SCH (08:15)
[2021-06-30] MEDS: METOPROLOL SUCC *XL* 25MG TAB (TopROL *XL*) PO SCH (08:15)
[2021-06-30] MEDS: ACETAMINOPHEN 500 MG TAB PO SCH ×3 (08:16→21:11)
--- NOTE | 2021-06-30 16:43 | IPNPDOC ---
Text Note Date of Service The patient was seen on 06/30/21. NOTE Ms. Gomez had mobility limitation (which includes preventing her from accom plishing her activities of daily living, and putting her at a heightened risk of morbidity, and completing activities of daily living within a reasonable timeframe). Her mobility limitations significantly impairs her ability to participate in activities of daily living including dressing and bathing in customary locations in the home. After working with physical therapy it was felt that her mobility limitation could not be sufficiently resolved by a fitted cane or a walker. As per the patient as well as her there is adequate access between rooms and maneuvering space, as well as surface for the use of a wheelchair that is provided. We believe that the use of a manual wheelchair will significantly improve the ability to participate in activities of daily living and the patient will use it on a regular at home. She has not expressed unwillingness to use the manual wheelchair provided at home. She has a /caregiver who is available, willing and able to provide assistance with the wheelchair Patient also requires positioning of the body in ways not feasible with an ordinary bed in order to alleviate pain. She also requires frequent changes in body position, therefore will benefit from a hospital bed VS,Soheilae, I+O VS, Soheilae, I+O Laboratory Tests 06/30/21 05:53 Vital Signs Date Time Temp Pulse Resp B/P (MAP) Pulse Ox O2 Delivery O2 Flow Rate FiO2 06/30/21 08:15 66 120/76 06/30/21 05:40 98.2 19 95 Room Air I&O- Last 24 Hours up to 6 AM 06/30/21 06:00 Intake Total 1500 ml Balance 1500 ml KIANA MAHAN M.D. Jun 30, 2021 16:42
[2021-06-30] MEDS: RIVAROXABAN 15 MG TAB (XARELTO) PO SCH (17:17)
[2021-06-30] MEDS: **NOTE PATIENT COMMENT** MISC XX SCH (21:11)
[2021-06-30] MEDS: traMADol 50 MG TAB PO PRN (22:25)
[2021-07-01 06:00] VITALS: BP 122/79
[2021-07-01 08:21] VITALS: BP 122/79
[2021-07-01] MEDS: VITAMIN D (CHOLECALCIFEROL) 400 INTERNATIONAL UNITS TAB PO SCH (08:21)
[2021-07-01] MEDS: METOPROLOL SUCC *XL* 25MG TAB (TopROL *XL*) PO SCH (08:21)
[2021-07-01] MEDS: ACETAMINOPHEN 500 MG TAB PO SCH ×2 (08:21→15:47)
[2021-07-01] MEDS: LIDOCAINE 5% (LIDODERM) PATCH TD SCH (08:22)
--- NOTE | 2021-07-01 14:25 | DS.PDOC ---
Discharge Summary General Date of Admission Jun 23, 2021 at 17:38 Date of Discharge 07/01/21 Discharge Summary DISCHARGE DIAGNOSES: #Mechanical fall #Osteoporosis/vitamin D deficiency #Chronic atrial fibrillation #Hypertension COMPLICATIONS/CHIEF COMPLAINT: Acetabular Fracture,Pelvic Fracture. HISTORY OF PRESENT ILLNESS: . HOSPITAL COURSE: Ms. Gomez, is a 86-year-old female with a past medical history of chronic atrial fibrillation on Xarelto, hypertension, and osteoporosis/vitamin D deficiency who presented to the emergency room department after slipping on an icy blacktop and landed on her right hip. CT scan demonstrated findings consistent with an anterior margin sacral fracture on the right side minimally to undisplaced. Inferior pubic ramus fracture minimally to undisplaced with some comminution and the anterior margin of the acetabulum on the right demonstrated undisplaced fracture. There is no signific ant evidence of any loosening of the right hip prosthesis. She was evaluated by the orthopedic team and conservative treatment was recommended. She worked with physical therapy and it was recommended for rehab to continue after discharge. However, patient wanted to go home with physical therapy/home health services. She had good family support. It is recommended by the orthopedic team for her to be weightbearing for balance only to the right lower extremity mobilize with a walker. Limit hip flexion to less than 45 degrees limited range of motion to the hip joint for 2 to 3 weeks. It should be noted she has mobility limitation (which includes preventing her from accomplishing her activities of daily living, and putting her at a heightened risk of morbidity, and completing activities of daily living within a reasonable timeframe). Her mobility limitations significantly impairs her ability to participate in activities of daily living including dressing and bathing in customary locations in the home. After working with physical therapy it was felt that her mobility limitation could not be sufficiently resolved by a fitted cane or a walker. As per the patient as well as her there is adequate access between rooms and maneuvering space, as well as surface for the use of a wheelchair that is provided. We believe that the use of a manual wheelchair will significantly improve the ability to participate in activities of daily living and the patient will use it on a regular at home. She has not expressed unwillingness to use the manual wheelchair provided at home. She has a /caregiver who is available, willing and able to provide assistance with the wheelchair Patient also requires positioning of the body in ways not feasible with an ordinary bed in order to alleviate pain. She also requires frequent changes in body position, therefore will benefit from a hospital bed Of note, there was a hematoma that was also appreciated on CT scan. Hemoglobin remained stable. She was resumed on Xarelto with her blood counts remaining stable. She is to follow-up with the orthopedic team (Dr. Sawyer) with repeat x-ray imaging in 6 weeks. She should follow-up with her primary care physician for ongoing management of her osteoporosis vitamin D deficiency. DISCHARGE MEDICATIONS: Please see below. ALLERGIES: Please see below. PHYSICAL EXAMINATION ON DISCHARGE: VITAL SIGNS: Please see below. General: Lying in bed, no acute distress Head/Neck/Throat: Trachea midline, mucous membranes moist Eyes: Sclera anicteric, erythema or discharge appreciated bilaterally Thorax: Normal respiratory effort on room air, lungs clear to auscultation bilaterally, no wheezes/rales/rhonchi Cardiovascular: Normal rate, regular rhythm, normal S1, S2; palpable dorsalis pedis bilaterally Abdomen: Bowel sounds present, soft/nontender/nondistended Genitourinary: No CVA tenderness, no Cooper in place Skin: Warm, dry Neurologic: AAOx3. 5/5 strength in the upper and lower extremities. Sensation to gross touch intact. LABORATORY DATA: Please see below. IMAGING: CT Pelvis without contrast FINDINGS: Evaluation is limited due to significant metallic streak artifact from right hip replacement. There is evidence for an acute comminuted minimally displaced fracture of the right inferior pubic ramus (series 201; image 77). There appears to be an associated intramuscular hematoma along the superficial aspect of the fracture which is incompletely evaluated due to significant metallic streak artifact. Coronal images of the right hip best demonstrate an associated subtle nondisplaced fracture along the internal cortex of the acetabulum (series 212; image 23). There is a subtle nondisplaced fracture along the anterior margin of the right james sacrum (series 201; images 34-39). IMPRESSION: Multiple fractures as described above. Hip,AP,LAT to include Pelvis RIGHT FINDINGS: The right hip prosthesis is unchanged in alignment and position. No abnormal para prosthetic lucencies are identified. There is evidence of a cortical overlap involving the acetabulum of the right hip and increased bony density involving the right inferior pubic ramus. This represents a change compared to the prior exam. This also represents a change compared to the contralateral side.. IMPRESSION: Findings, as described above, suspicious for a right james pelvic fracture. CT recommended for further evaluation. PROGNOSIS: Good ACTIVITY: As described above. DISCHARGE INSTRUCTIONS: As above. DISCHARGE CONDITION: Stable TIME SPENT ON DISCHARGE: 30 minutes. Vital Signs/I&Os Vital Signs Date Time Temp Pulse Resp B/P (MAP) Pulse Ox O2 Delivery O2 Flow Rate FiO2 07/01/21 08:21 60 122/79 07/01/21 06:00 97.6 19 95 Room Air I&O- Last 24 Hours up to 6 AM 07/01/21 05:59 Intake Total 520 ml Balance 520 ml Microbiology Microbiology 06/24/21 Urine Culture - Final, Complete Discharge Medications Scheduled Alendronate Sodium (Alendronate Sodium) 70 Mg Tablet, 70 MG PO QWEEK, (Reported) SUNDAYS Calcium Carbonate/Vitamin D3 (Calcium 600 + Vit D 400 Softgl) 1 Each Capsule, 1 CAP PO DAILY, (Reported) Metoprolol Tartrate (Metoprolol Tartrate) 25 Mg Tablet, 25 MG PO BID, (Reported) Rivaroxaban (Xarelto) 20 Mg Tablet, 20 MG PO DAILY, (Reported) Scheduled PRN Acetaminophen (Tylenol Extra Strength) 500 Mg Tablet, 500 MG PO Q6HP PRN for PAIN, (Reported) Allergies Coded Allergies: No Known Allergies (Unverified , 12/19/18) KIANA MAHAN M.D. Jul 01, 2021 14:25
== END 2021-07-01 16:40 | disposition home health service (06) | DRG 551 ==
LOC: EDBD 13:17 → M ED 13:17 → M ED INP 17:38 → M MS5PR 21:03
PROVIDERS: ADMIT General Practice; ATTEND Internal Medicine
DX: S32.19XA Other fracture of sacrum, initial encounter for closed fracture (principal); S32.491A Other specified fracture of right acetabulum, initial encounter for closed fracture; I48.20 Chronic atrial fibrillation, unspecified; S32.591A Other specified fracture of right pubis, initial encounter for closed fracture; E55.9 Vitamin D deficiency, unspecified; M81.0 Age-related osteoporosis without current pathological fracture; S30.1XXA Contusion of abdominal wall, initial encounter; Z96.641 Presence of right artificial hip joint; Z87.891 Personal history of nicotine dependence; W00.0XXA Fall on same level due to ice and snow, initial encounter; Y92.89 Other specified places as the place of occurrence of the external cause; Y93.9 Activity, unspecified; Y99.8 Other external cause status; Z79.01 Long term (current) use of anticoagulants; Z79.899 Other long term (current) drug therapy; Z20.822 Contact with and (suspected) exposure to COVID-19; Z74.09 Other reduced mobility; Z74.1 Need for assistance with personal care

== ENCOUNTER → 2021-08-10 | Outpatient (CLI) | payer MEDICARE ==
[~2021-08-10] MED LIST changes: +ALEN70TA82 PO
== END ==
LOC: M SOG 08-09 15:12
PROVIDERS: ATTEND Orthopaedic Surgery Adult Reconstructive Orthopaedic Surgery
DX: M25.551 Pain in right hip (principal)

== ENCOUNTER → 2021-11-22 | Outpatient (CLI) | payer MEDICARE | LOC: M WHC 15:40 | PROVIDERS: ATTEND Nurse Practitioner Adult Health | DX: Z12.31 Encounter for screening mammogram for malignant neoplasm of breast (principal) ==

== ENCOUNTER → 2021-12-07 | Outpatient (CLI) | payer MEDICARE | LOC: M WUC 13:32 | PROVIDERS: ATTEND Nurse Practitioner Adult Health | DX: M51.26 Other intervertebral disc displacement, lumbar region (principal) ==

== ENCOUNTER → 2025-05-22 | Outpatient (CLI) | payer MEDICARE | LOC: M WHC 09:16 | PROVIDERS: ATTEND Nurse Practitioner Adult Health | DX: M81.0 Age-related osteoporosis without current pathological fracture (principal) ==